=== PATIENT | male | born 1945 | race Caucasian/White ===

== ENCOUNTER 2024-03-07 03:28 | Inpatient (IN) | payer MEDICARE, OTHER ==
[~2024-03-07] VITALS: Ht 185.4 cm; Wt 87.7 kg
[2024-03-07] VITALS (14 sets, daily range): BP systolic 97–121; BP diastolic 58–71; PULSE 61–87; RESP 14–28; TEMP 98.2–98.6; O2SAT 96–100
[2024-03-07] MEDS: FUROSEMIDE 40 MG/4 ML VIAL IVP ONE (04:17)
[2024-03-07 04:26] LABS: BASOPHILS % (AUTO) 0.4 % (0.0-2.0); HEMATOCRIT 30.4 % (41-53); HEMOGLOBIN 10.3 g/dL (13.5-17.5); LYMPHOCYTES # (AUTO) 0.6 K/uL (1.0-4.8); LYMPHOCYTES % (AUTO) 28.8 % (22.0-44.0); MEAN CORPUSCULAR HEMOGLOBIN 37.3 pg (26.0-34.0); MEAN CORPUSCULAR HGB CONC 33.9 G/dL (31.0-37.0); MEAN CORPUSCULAR VOLUME 110 fL (80-100); MONOCYTES # (AUTO) 0.1 K/uL (0.1-1.0); MONOCYTES % (AUTO) 6.9 % (2.0-9.0); NEUTROPHILS # (AUTO) 1.3 K/uL (1.8-7.7); NEUTROPHILS % (AUTO) 62.9 % (40.0-70.0); PLATELET COUNT (AUTO) 206 K/uL (150-450); RED BLOOD CELL COUNT(AUTO) 2.76 MIL/uL (4.50-5.90); RED CELL DISTRIBUTION WIDTH 14.2 % (11.5-14.5)
[2024-03-07 04:27] LABS: COVID AG,FIA SOURCE NASAL SWAB
[2024-03-07 04:34] LABS: SARS-COV2 (COVID) ANTIGEN,FIA Negative (Negative)
[2024-03-07 04:35] LABS: ANION GAP 10 mmol/L (8-16); CARBON DIOXIDE 24 mmol/L (22-29); CHLORIDE 108 mmol/L (98-107); CREATININE 0.85 mg/dL (0.60-1.30); GLOMERULAR FILTR. RATE CALC > 60 mL/min (>60); GLUCOSE,RANDOM 143 mg/dL (70-110); POTASSIUM 3.6 mmol/L (3.5-5.1); SODIUM SERUM 142 mmol/L (136-145); UREA NITROGEN, BLOOD 15 mg/dL (7-18)
[2024-03-07 04:35] LABS: INFLUENZA TYPE A NEGATIVE FOR TYPE A (NEGATIVE); INFLUENZA TYPE B NEGATIVE FOR TYPE B (NEGATIVE)
[2024-03-07 04:45] LABS: TROPONIN I-HIGH SENSITIVITY 100 ng/L (<76)
[2024-03-07 04:52] LABS: B-TYPE NATRIURETIC PEPTIDE 233 pg/mL (0-100)
[2024-03-07 07:28] LABS: TROPONIN I-HIGH SENSITIVITY 7031 ng/L (<76)
[2024-03-07] MEDS ORDERED: HEPARIN SODIUM,PORCINE 5,000 UNITS/ML VIAL IVP PRN ×3 (07:30→07:40)
[2024-03-07] MEDS ORDERED: MAGNESIUM HYDROXIDE SUSPENSION 30 ML UDCUP PO PRN (07:45)
[2024-03-07] MEDS ORDERED: ACETAMINOPHEN 325 MG TABLET PO PRN (07:45)
[2024-03-07] MEDS ORDERED: BISACODYL 10 MG RECTAL RECTAL SUPPOSITORY PR PRN (07:45)
[2024-03-07] MEDS ORDERED: ONDANSETRON HCL 4 MG/2 ML VIAL IVP PRN (07:45)
[2024-03-07] MEDS: ASPIRIN 81 MG CHEWABLE TABLET PO ONE (07:46)
[2024-03-07] MEDS: DOCUSATE SODIUM 100 MG CAPSULE PO SCH (07:49)
[2024-03-07 08:05] LABS: BASOPHILS % (AUTO) 0.3 % (0.0-2.0); EOSINOPHILS % (AUTO) 0.2 % (1.0-6.0); HEMATOCRIT 30.4 % (41-53); HEMOGLOBIN 10.3 g/dL (13.5-17.5); LYMPHOCYTES # (AUTO) 0.5 K/uL (1.0-4.8); LYMPHOCYTES % (AUTO) 23.9 % (22.0-44.0); MEAN CORPUSCULAR HEMOGLOBIN 37.3 pg (26.0-34.0); MEAN CORPUSCULAR HGB CONC 33.7 G/dL (31.0-37.0); MEAN CORPUSCULAR VOLUME 111 fL (80-100); MONOCYTES # (AUTO) 0.1 K/uL (0.1-1.0); MONOCYTES % (AUTO) 4.6 % (2.0-9.0); NEUTROPHILS # (AUTO) 1.5 K/uL (1.8-7.7); PLATELET COUNT (AUTO) 182 K/uL (150-450); RED BLOOD CELL COUNT(AUTO) 2.75 MIL/uL (4.50-5.90); RED CELL DISTRIBUTION WIDTH 14.8 % (11.5-14.5); WHITE BLOOD COUNT (AUTO) 2.1 K/uL (4.5-11.0)
[2024-03-07 08:06] LABS: RBC MORPHOLOGY COMMENT ABNORMAL RBC MORPH
[2024-03-07 08:21] LABS: PROTHROMBIN TIME 11.7 SEC (9.4-11.6)
[2024-03-07] MEDS: HEPARIN SODIUM,PORCINE 5,000 UNITS/ML VIAL IVP ONE (08:35)
[2024-03-07] MEDS: HEPARIN SODIUM 25000 UNITS/D5W 250 ML IV PRN (08:42)
[2024-03-07] MEDS: CARVEDILOL 6.25 MG TABLET PO SCH (08:49)
[2024-03-07] MEDS: PANTOPRAZOLE SODIUM 40 MG/VIAL IVP SCH (08:49)
[2024-03-07] MEDS: ATORVASTATIN CALCIUM 40 MG TABLET PO SCH (08:49)
[2024-03-07 11:20] LABS: APPEARANCE,URINE CLEAR (CLEAR); BILIRUBIN,URINE NEGATIVE (NEGATIVE); COLOR,URINE LIGHT YELLOW (YELLOW); GLUCOSE, URINE (UA) NEGATIVE (NEGATIVE); KETONES,URINE NEGATIVE (NEGATIVE); LEUKOCYTE ESTERASE ,URINE NEGATIVE (NEGATIVE); NITRATE,URINE NEGATIVE (NEGATIVE); OCCULT BLOOD,URINE NEGATIVE (NEGATIVE); PH,URINE 5.5 (5.0-8.0); PROTEIN,URINE NEGATIVE (NEGATIVE); SPECIFIC GRAVITIY, URINE 1.014 (1.003-1.030); UROBILINOGEN,URINE <=1.0 mg/dL (<=1.0)
[2024-03-07 13:41] LABS: TROPONIN I-HIGH SENSITIVITY > 25000 ng/L (<76)
[2024-03-07] MEDS ORDERED: SODIUM BICARBONATE 50 MEQ/50 ML VIAL ONE (14:07)
[2024-03-07] MEDS ORDERED: VERAPAMIL HCL 2.5 MG/ML 2 ML VIAL ONE (14:07)
[2024-03-07] MEDS ORDERED: NITROGLYCERIN 50 MG/D5% WATER 250 ML ONE (14:07)
[2024-03-07] MEDS ORDERED: IOHEXOL 300 MG/ML 100 ML VIAL ONE (14:07)
[2024-03-07] MEDS ORDERED: LIDOCAINE/PF 1% 30 ML VIAL ONE (14:07)
[2024-03-07] MEDS ORDERED: HEPARIN SODIUM 1000 UNITS/NS 1,000 ML ONE (14:07)
[2024-03-07] MEDS: TICAGRELOR 90 MG TABLET PO ONE (14:17)
[2024-03-07] MEDS ORDERED: MIDAZOLAM HCL 2 MG/2 ML VIAL ONE (15:03)
[2024-03-07] MEDS ORDERED: IOHEXOL 300 MG/ML 50 ML VIAL ONE (15:17)
[2024-03-07] MEDS: HEPARIN SODIUM,PORCINE 1,000 UNITS/ML 10 ML VIAL IARTER ONE (15:25)
[2024-03-07] MEDS: NITROGLYCERIN/D5W 50 MG/250 ML IV BOTTLE IARTER ONE (15:26)
[2024-03-07] MEDS: VERAPAMIL HCL 2.5 MG/ML 2 ML VIAL IARTER ONE (15:26)
[2024-03-07] MEDS: HEPARIN SODIUM 1000 UNITS/NS 1,000 ML IARTER ONE (15:27)
[2024-03-07] MEDS: IOHEXOL 300 MG/ML 100 ML VIAL ICOR ONE (15:27)
[2024-03-07] MEDS: LIDOCAINE 1% 30 ML/SOD BICARB 8.4% 4 ML SQ ONE (15:28)
[2024-03-07] MEDS: SODIUM CHLORIDE 0.9% 500 ML IV ONE (15:29)
[2024-03-07] MEDS: IOHEXOL 300 MG/ML 50 ML VIAL IARTER ONE (15:30)
[2024-03-07] MEDS: TICAGRELOR 90 MG TABLET PO SCH (21:15)
[2024-03-08] VITALS (9 sets, daily range): BP systolic 92–116; BP diastolic 37–64; PULSE 59–75; RESP 13–24; TEMP 98.2–98.6; O2SAT 95–100
[2024-03-08 05:18] LABS: BAND NEUTROPHILS % (MANUAL) 0 % (0-5)
[2024-03-08 05:34] LABS: BASOPHILS % (AUTO) 0.2 % (0.0-2.0); EOSINOPHILS % (AUTO) 1.7 % (1.0-6.0); HEMATOCRIT 29.9 % (41-53); LYMPHOCYTES # (AUTO) 0.7 K/uL (1.0-4.8); LYMPHOCYTES % (AUTO) 40.4 % (22.0-44.0); MEAN CORPUSCULAR HEMOGLOBIN 36.5 pg (26.0-34.0); MEAN CORPUSCULAR HGB CONC 33.4 G/dL (31.0-37.0); MEAN CORPUSCULAR VOLUME 109 fL (80-100); MONOCYTES # (AUTO) 0.2 K/uL (0.1-1.0); MONOCYTES % (AUTO) 10.5 % (2.0-9.0); NEUTROPHILS # (AUTO) 0.9 K/uL (1.8-7.7); NEUTROPHILS % (AUTO) 47.2 % (40.0-70.0); PLATELET COUNT (AUTO) 174 K/uL (150-450); RED BLOOD CELL COUNT(AUTO) 2.74 MIL/uL (4.50-5.90); RED CELL DISTRIBUTION WIDTH 14.3 % (11.5-14.5); WHITE BLOOD COUNT (AUTO) 1.8 K/uL (4.5-11.0)
[2024-03-08 05:37] LABS: ALANINE AMINOTRANSFERASE 45 U/L (12-78); ALBUMIN 2.8 g/dL (3.4-5.0); ALKALINE PHOSPHATASE 81 U/L (46-116); ANION GAP 8 mmol/L (8-16); ASPARTATE AMINOTRANSFERASE 87 U/L (15-37); BILIRUBIN,TOTAL 1.1 mg/dL (0.1-1.0); CALCIUM, TOTAL 8.2 mg/dL (8.8-10.5); CARBON DIOXIDE 25 mmol/L (22-29); CHLORIDE 109 mmol/L (98-107); CREATININE 0.69 mg/dL (0.60-1.30); GLOMERULAR FILTR. RATE CALC > 60 mL/min (>60); GLUCOSE,RANDOM 99 mg/dL (70-110); POTASSIUM 4.1 mmol/L (3.5-5.1); SODIUM SERUM 142 mmol/L (136-145); TOTAL PROTEIN, SERUM 5.9 g/dL (6.4-8.2); UREA NITROGEN, BLOOD 11 mg/dL (7-18)
[2024-03-08 05:52] LABS: TROPONIN I-HIGH SENSITIVITY 13464 ng/L (<76)
[2024-03-08 06:58] LABS: RBC MORPHOLOGY COMMENT ABNORMAL RBC MORPH
[2024-03-08] MEDS: ASPIRIN 81 MG CHEWABLE TABLET PO SCH (09:12)
[2024-03-08] MEDS: FUROSEMIDE 40 MG/4 ML VIAL IVP SCH (09:12)
[2024-03-08 09:56] LABS: EOSINOPHILS % (MANUAL) 2 % (1-6); LYMPHOCYTES % (MANUAL) 41 % (22-44); MONOCYTES % (MANUAL) 8 % (2-9); SEGMENTED NEUTROPHILS % 49 % (40-70); TOTAL CELLS COUNTED 100
[2024-03-08] MEDS: APIXABAN 5 MG TABLET PO SCH (11:53)
[2024-03-08] MEDS ORDERED: PANTOPRAZOLE SODIUM 40 MG/VIAL IVP SCH (21:00)
[2024-03-09] VITALS: BP 106/57; PULSE 70; RESP 18; O2SAT 90
[2024-03-09 04:00] VITALS: BP 98/41; PULSE 62; RESP 16; TEMP 98.7; O2SAT 95
[2024-03-09 05:17] LABS: BASOPHILS % (AUTO) 0.3 % (0.0-2.0); EOSINOPHILS % (AUTO) 1.4 % (1.0-6.0); HEMATOCRIT 28.8 % (41-53); LYMPHOCYTES # (AUTO) 0.7 K/uL (1.0-4.8); MEAN CORPUSCULAR HGB CONC 34.7 G/dL (31.0-37.0); MEAN CORPUSCULAR VOLUME 110 fL (80-100); MONOCYTES # (AUTO) 0.2 K/uL (0.1-1.0); MONOCYTES % (AUTO) 8.7 % (2.0-9.0); NEUTROPHILS % (AUTO) 53.6 % (40.0-70.0); PLATELET COUNT (AUTO) 173 K/uL (150-450); RED BLOOD CELL COUNT(AUTO) 2.63 MIL/uL (4.50-5.90); RED CELL DISTRIBUTION WIDTH 14.3 % (11.5-14.5); WHITE BLOOD COUNT (AUTO) 1.9 K/uL (4.5-11.0)
[2024-03-09 05:30] LABS: ALANINE AMINOTRANSFERASE 38 U/L (12-78); ALBUMIN 2.8 g/dL (3.4-5.0); ALKALINE PHOSPHATASE 82 U/L (46-116); ANION GAP 8 mmol/L (8-16); ASPARTATE AMINOTRANSFERASE 57 U/L (15-37); BILIRUBIN,TOTAL 1.4 mg/dL (0.1-1.0); CALCIUM, TOTAL 8.1 mg/dL (8.8-10.5); CARBON DIOXIDE 25 mmol/L (22-29); CHLORIDE 107 mmol/L (98-107); CREATININE 0.75 mg/dL (0.60-1.30); GLOMERULAR FILTR. RATE CALC > 60 mL/min (>60); GLUCOSE,RANDOM 96 mg/dL (70-110); POTASSIUM 4.2 mmol/L (3.5-5.1); SODIUM SERUM 140 mmol/L (136-145); TOTAL PROTEIN, SERUM 6.1 g/dL (6.4-8.2); UREA NITROGEN, BLOOD 14 mg/dL (7-18)
[2024-03-09 07:24] LABS: PATHOLOGY REVIEW, DIFF YES; RBC MORPHOLOGY COMMENT ABNORMAL RBC MORPH
[2024-03-09 08:00] VITALS: BP 142/86; PULSE 71; RESP 19; TEMP 98.3; O2SAT 96
[2024-03-09] MEDS ORDERED: FURO20TA5 PO (10:38)
[2024-03-09] MEDS ORDERED: TICA90TA PO (10:39)
[2024-03-09] MEDS ORDERED: CARV6 PO (10:39)
[2024-03-09] MEDS ORDERED: APIX5TAB PO (10:40)
[2024-03-09] MEDS ORDERED: ATOR40TA28 PO (10:40)
[2024-03-09 12:00] VITALS: BP 101/67; PULSE 65; RESP 16; TEMP 98.3; O2SAT 98
[2024-03-10] MEDS ORDERED: FUROSEMIDE 20 MG TABLET PO SCH (09:00)
== END 2024-03-09 13:45 | disposition home or self-care (01) | DRG 280 ==
LOC: EMS 03:29 → EDH 07:49 → ICU 16:15
PROVIDERS: ADMIT Internal Medicine; ATTEND Internal Medicine
PROC: 5A09357 Assistance with Respiratory Ventilation, Less than 24 Consecutive Hours, Continuous Positive Airway Pressure (ICD-10-PCS; principal; 2024-03-07)
PROC: 4A023N7 Measurement of Cardiac Sampling and Pressure, Left Heart, Percutaneous Approach (ICD-10-PCS; 2024-03-07)
PROC: B2111ZZ Fluoroscopy of Multiple Coronary Arteries using Low Osmolar Contrast (ICD-10-PCS; 2024-03-07)
DX: I21.4 Non-ST elevation (NSTEMI) myocardial infarction (principal); I50.23 Acute on chronic systolic (congestive) heart failure; J96.01 Acute respiratory failure with hypoxia; I11.0 Hypertensive heart disease with heart failure; Z20.822 Contact with and (suspected) exposure to COVID-19; I25.10 Atherosclerotic heart disease of native coronary artery without angina pectoris; E78.00 Pure hypercholesterolemia, unspecified; D72.818 Other decreased white blood cell count; I48.0 Paroxysmal atrial fibrillation; I08.0 Rheumatic disorders of both mitral and aortic valves; J44.9 Chronic obstructive pulmonary disease, unspecified; Z86.718 Personal history of other venous thrombosis and embolism; Z85.528 Personal history of other malignant neoplasm of kidney; Z79.01 Long term (current) use of anticoagulants; Z95.5 Presence of coronary angioplasty implant and graft; Z87.891 Personal history of nicotine dependence
CPT/HCPCS: 71045; 80048; 80053; 81003; 83880; 84484; 85007; 85025; 85027; 85610; 85730; 87081; 87481; 87804; 93005; 93306; 93970; 94660; 97163; 97530; 99285; J1644; J1940; J2250; J2470; J3490; Q9967; 36415-L1; 36415-TC; Z7610